=== PATIENT | male | born 1985 | race Caucasian/White ===

== ENCOUNTER 2020-09-24 01:56 | Emergency (ER) | payer OTHER ==
[2020-09-24 02:01] VITALS: BP 127/80; PULSE 85; RESP 20; TEMP 98.2
--- NOTE | 2020-09-24 02:09 | ED ---
URI HPI - General Chief Complaint: Upper Respiratory Infection Stated Complaint: Congestion, covid exposure Time Seen by Provider: 09/24/20 02:03 Source: patient Mode of arrival: ambulatory Limitations: no limitations - History of Present Illness Initial Comments: 34-year-old male patient presents to the emergency department today requesting testing for COVID-19. States that this evening he started to arrange nasal congestion and burning in his sinuses. He states that he does work as a first line production supervisor and has been exposed to someone recently tested positive. He states the exposure was 2 days ago. Denies any fever or chills. Denies any cough or shortness of breath. Denies rash or loss of taste or smell. Patient states it is also harvesting season where he was and it has been very manuel and air. He denies taking any medication for his symptoms. States he has a history of brain tumor which she treated with medication and he is recovering from that has no other medical conditions. Patient denies any recent chest pain, abdominal pain, nausea, vomiting, diarrhea, constipation, back pain, numbness, tingling, dizziness, weakness, hematuria, dysuria, urinary urgency, urinary frequency, headache, visual changes, or any other complaints. - Related Data Allergies Allergy/AdvReac Type Severity Reaction Status Date / Time amoxicillin Allergy Nausea & Verified 09/24/20 02:01 Vomiting & Diarrhea Review of Systems ROS Statement: Those systems with pertinent positive or pertinent negative responses have been documented in the HPI. ROS Other: All systems not noted in ROS Statement are negative. Past Medical History Additional Past Medical History / Comment(s): brain tumor History of Any Multi-Drug Resistant Organisms: None Reported Past Surgical History: Adenoidectomy, Ear Surgery, Tonsillectomy Past Psychological History: ADD/ADHD Smoking Status: Former smoker Past Alcohol Use History: None Reported Past Drug Use History: Marijuana General Exam Limitations: no limitations General appearance: alert, in no apparent distress, other (This is a well- developed, well-nourished adult male patient in no acute distress. Vital signs upon presentation are temperature 98.2F, pulse 85, respirations 20, blood pressure 127/80, pulse ox 98% on room air.) Eye exam: Present: normal appearance, PERRL, EOMI. Absent: scleral icterus, conjunctival injection, periorbital swelling ENT exam: Present: normal exam, normal oropharynx, mucous membranes moist Respiratory exam: Present: normal lung sounds bilaterally. Absent: respiratory distress, wheezes, rales, rhonchi, stridor Cardiovascular Exam: Present: regular rate, normal rhythm, normal heart sounds. Absent: systolic murmur, diastolic murmur, rubs, gallop, clicks Neurological exam: Present: alert, oriented X3, CN II-XII intact Psychiatric exam: Present: normal affect, normal mood Skin exam: Present: warm, dry, intact, normal color. Absent: rash Course Vital Signs 09/24/20 09/24/20 01:57 02:19 Temperature 98.2 F Pulse Rate 85 Respiratory 20 20 Rate Blood Pressure 127/80 O2 Sat by Pulse 98 Oximetry Medical Decision Making - Medical Decision Making 34-year-old male patient presented to the emergency department today for evaluation of nasal congestion and sinus burning. Physical examination is unremarkable. His lungs are clear to auscultation with good air movement. He is afebrile, vital signs. Rapid COVID-19 was negative. Patient is reassured. He'll be discharged follow up with his primary care physician for recheck in 1-2 days. Return parameters were discussed in detail. He verbalizes understanding and agrees with this plan. - Lab Data Lab Results 09/24/20 Range/Units 02:15 Coronavirus (PCR) Not Detected (Not Detectd) Disposition Clinical Impression: Nasal congestion Disposition: HOME SELF-CARE Condition: Good Instructions (If sedation given, give patient instructions): Cold Symptoms (ED) Additional Instructions: Use over the counter nasal decongestants for symptom relief. Follow up with your primary care physician for recheck in 1-2 days. Return to the emergency department for any new, worsening, or concerning symptoms. Is patient prescribed a controlled substance at d/c from ED?: No Referrals: Dawson Charles DO [Primary Care Provider] - 1-2 days Time of Disposition: 02:47
== END 2020-09-24 02:48 | disposition home or self-care (01) ==
LOC: EC 01:56
DX: Z20.828 Contact with and (suspected) exposure to other viral communicable diseases (principal); R09.81 Nasal congestion; Z88.0 Allergy status to penicillin; Z87.891 Personal history of nicotine dependence
CPT/HCPCS: 87635; 99283

== ENCOUNTER → 2021-10-06 | Outpatient (CLI) | payer OTHER ==
--- NOTE | 2021-10-06 16:48 | XR ---
EXAMINATION TYPE: XR lumbosacral spine min 4V DATE OF EXAM: 10/06/2021 CLINICAL HISTORY: Pain after fall injury last week. TECHNIQUE: Frontal, lateral, and oblique images of the lumbar spine are obtained. COMPARISON: Lumbar spine x-ray September 28, 2016 FINDINGS: There are 5 lumbar type vertebral bodies redemonstrated. The lumbar spine shows stable an d straightened alignment without evidence of acute fracture or dislocation. Vertebral body heights an d disk space heights are stable and within normal limits. The oblique images appear within normal l imits. The overlying soft tissue appears unremarkable. IMPRESSION: As above. No significant change from prior.
== END ==
LOC: RADXRYALE 15:43
PROVIDERS: ATTEND Physician Assistant
DX: M54.50 Low back pain, unspecified (principal); W19.XXXA Unspecified fall, initial encounter
CPT/HCPCS: 72110

== ENCOUNTER → 2022-05-23 | Outpatient (CLI) | payer OTHER ==
--- NOTE | 2022-05-23 13:48 | US ---
EXAMINATION TYPE: US scrotum with doppler. Grayscale and color Doppler Duplex imaging performed of t lai scrotum. DATE OF EXAM: 05/23/2022 COMPARISON: NONE CLINICAL HISTORY: N50.82 SCROTAL PAIN. Scrotal pain x 1 week. EXAM MEASUREMENTS: TESTICLES: Right Testicle: 4.3 x 3.1 x 2.4 cm Left Testicle: 4.1 x 2.6 x 2.5 cm EPIDIDYMIS HEAD: Right Epididymis: 1.1 x 1.3 x 1.0 cm Left Epididymis: 0.9 x 0.9 x 0.7 cm Doppler performed to assess for testicular vascularity; good bilateral color flow and waveforms are s een. Presence of hydroceles: Small amount of fluid seen on both sides. Presence of varicoceles: ? Varicocele on the left side. Comparison view show symmetric blood flow to both testicles towards end of study. IMPRESSION: No suspicious increased or decreased blood flow to either testicle.
== END | disposition home or self-care (01) ==
LOC: RADUSWWP 12:13
PROVIDERS: ATTEND Family Medicine
DX: N50.82 Scrotal pain (principal)
CPT/HCPCS: 76870; 93975

== ENCOUNTER → 2023-06-17 | Outpatient (CLI) | payer OTHER, BC ==
--- NOTE | 2023-06-17 10:19 | MM ---
Reason for Exam: Clinical finding. Indicated Problems: Lump or thickening. Patient History: Maternal aunt had breast cancer, age 50. Tissue Density: The breast tissue is almost entirely fat. Findings: Analyzed By CAD. Mild bilateral gynecomastia changes. Nothing definitive correlate with palpable abnormality. No new suspicious masses, calcifications or distortions. Overall Assessment: Incomplete: need additional imaging evaluation, BI-RAD 0 Management: Diagnostic Breast Ultrasound of the right breast. For complete less ultrasound of the right breast in area of palpable abnormality. Results were given to the patient verbally at the time of exam. Patient should continue monthly self-breast exams. A clinical breast exam by your physician is recommended on an annual basis. This exam should not preclude additional follow-up of suspicious palpable abnormalities. Note on Danna scores and lifetime risk: 1. A Danna score greater than 3% is considered moderate risk. If this is the case, consider specialist referral to assess eligibility for a risk reducing agent. 2. If overall lifetime risk for the development of breast cancer is 20% or higher, the patient may qualify for future screening with alternating mammogram and breast MRI. Electronically signed and approved by: Guanako Vasquez DO
--- NOTE | 2023-06-17 10:55 | USB ---
Reason for Exam: Clinical finding. Patient History: Maternal aunt had breast cancer, age 50. Technique: Method: Targeted. Findings: The upper inner quadrant of the right breast, the area of palpable concern of the right breast, the axilla of the right breast and the retroareolar of both breasts were scanned. Imaged: Ultrasound imaging of: Area of concern, retroareolar region and axilla. Findings compatible with gynecomastia. No evidence for organizing fluid collection or mass. Overall Assessment: Benign, BI-RAD 2 Management: No Follow-up of the left breast. Clinical management for patient's gynecomastia. A clinical breast exam by your physician is recommended on an annual basis and results should be correlated with mammographic findings. This exam should not preclude additional follow-up of suspicious palpable abnormalities. Results were given to the patient verbally at the time of exam. Electronically signed and approved by: Guanako Vasquez DO
== END | disposition home or self-care (01) ==
LOC: RADMAMWWP 09:41
PROVIDERS: ATTEND Family Medicine
DX: N63.13 Unspecified lump in the right breast, lower outer quadrant (principal); N63.41 Unspecified lump in right breast, subareolar; Z80.3 Family history of malignant neoplasm of breast
CPT/HCPCS: 77062; 77066